=== PATIENT | female | born 1995 | race Asian ===

== ENCOUNTER 2016-04-23 04:27 | Emergency (ER) | payer OTHER ==
[~2016-04-23] VITALS: Ht 172.7 cm; Wt 58.1 kg
[2016-04-23 04:31] VITALS: TEMP 36.9; Ht 172.7 cm; Wt 58.1 kg
[2016-04-23] MEDS ORDERED: ONDANSETRON 4MG OD TAB PO ONE (04:45)
[2016-04-23] MEDS ORDERED: ONDANSETRON HOME PACK 4MG OD TAB PO ONE (05:00)
--- NOTE | 2016-04-23 05:26 | EMERGENCY ROOM VISIT NOTE ---
History First contact with patient: 04:34 Chief Complaint: ALCOHOL OVERDOSE Stated Complaint: FEEL LIKE VOMITING- ALOCHOL POISONING? Nursing Triage Summary: Patient c/o n/v. Admits to drinking ETOH tonight. States, "I drank cider tonight. It's more than a beer. It's not legal." Denies any pain. History of Present Illness The patient is a 20 year old female who presents to the Emergency Room with complaints of nausea and upset stomach after having 3 ciders tonight. Patient denies chest pain, dyspnea, fever, chills, vomiting, diarrhea, drug use, abdominal pain, lightheadedness or dizziness. Patient feels nauseous and is requesting medication for this. Review of Systems See HPI for pertinent positives & negatives. A total of 10 systems reviewed and were otherwise negative. Past Medical/Surgical History Medical Problems: (1) Influenza-like symptoms (2) Urinary tract infection Family History No pertinent family history Social History Smoking Status: Never Smoker Smokeless Tobacco Use: No Alcohol Use: occasionally Drug Use: none Marital Status: in relationship Housing Status: lives with friends Occupation Status: [employer] student Allergies Coded Allergies: No Known Allergies (Unverified , 12/07/13) Physical Exam Vital Signs Date Time Temp Pulse Resp B/P Pulse Ox O2 Delivery O2 Flow Rate FiO2 04/23/16 04:31 36.9 76 18 98/74 98 Room Air Physical Exam VITALS: Vitals are noted on the nurse's note and reviewed by myself. Vital signs stable. GENERAL: Pleasant female with a 3 to, in no acute distress, nondiaphoretic, well -developed well-nourished. SKIN: The skin was without rashes, erythema, edema, or bruising. There is no tenting of the skin. Capillary reflex less than 2 seconds. HEAD: Normocephalic atraumatic. EARS: External auditory canals clear, tympanic membranes pearly aparicio without erythema or effusion bilaterally. EYES: Pupils equal round and reactive to light and accommodation. Conjunctivae with injection, sclerae without icterus. Extraocular movements intact. NOSE: Patent, turbinates without inflammation or discharge. MOUTH: Mucous membranes moist. Pharynx without erythema or exudate. Uvula midline. Airway patent. Tongue does not deviate. NECK: Supple without nuchal rigidity. No lymphadenopathy. No thyromegaly. Cervical spine is nontender. No JVD. HEART: Regular rate and rhythm without murmurs gallops or rubs. LUNGS: Clear to auscultation bilaterally without wheezes, rales or rhonchi. No dullness to percussion. No retractions or accessory muscle use. ABDOMEN: Positive bowel sounds x 4. Normal tympanic percussion. Soft, nontender, without masses or organomegaly. Pearl sign negative. No guarding or rebound tenderness. MUSCULOSKELETAL: No muscle atrophy, erythema, or edema noted. NEURO: Patient was alert and oriented to person place and time. Normal sensation to light and sharp touch. No focal neurological deficits. Medical Decision & Procedures Medications Administered Medications (Trade) Dose Ordered Sig/Philip Route Start Time Stop Time Status Last Admin Dose Admin Ondansetron HCl (Zofran Odt) 4 mg ONE ONCE PO 04/23/16 04:45 04/23/16 04:46 DC 04/23/16 04:47 4 MG ED Course Prior records/ancillary studies reviewed. Triage Nursing notes reviewed. Additional history obtained from the family. The patient's history was concerning for nausea, after drinking alcohol Differential diagnosis: Etiologies such as alcoholic gastritis, nausea, food borne illness, infections, appendicitis, diverticulitis, inflammatory bowel disease, obstruction, GI bleed , biliary pathology, as well as others were entertained. Physical examination findings: As above. Abdominal examination revealed no tenderness. Vital signs reviewed and revealed stable. ER treatment provided: Zofran, by mouth fluids On reassessment the patient felt better. Patient was tolerating p.o. intake. Diagnostics interpretation by me: Deferred This appears to be consistent with nausea most likely from alcohol use. Patient does not drink this much alcohol. She was not clinically intoxicated. She was well-appearing. She felt much better after being medicated as above. She is strongly encouraged not to drink excessively in the future. She is advised to follow-up with health services in a few days or here in the ER sooner for abdominal pain, fevers, vomiting, worsening signs or symptoms or as needed. By the evaluation outlined above emergent etiologies such as appendicitis, diverticulitis, obstruction, cardiac sources, mesenteric ischemia , aortic pathology, inflammatory bowel disease, renal colic, PUD, biliary pathology, UTI, as well as others were deemed relatively unlikely. The pt informed about the findings as listed above. All questions were answered and pleased with the treatment. Return instructions were outlined and the patient was discharged in stable condition. Outpatient prescription management: zofran Referral: The patient was referred to their primary care physician for follow-up in 2 to 3 days for a recheck of the current condition. Medical Decision As above Impression Primary Impression: Alcohol use Additional Impression: Nausea Departure Information Dispostion Home / Self-Care Condition GOOD Referrals [facility] (PCP) Patient Instructions [facility] Additional Instructions DO NOT drive, drink alcohol, operate machinery, or perform dangerous activities today. You were given medications in the ER that can affect your ability to safely function or operate a vehicle. Zofran(odansetron) tablets 4mg: Take one and allow it to dissolve in your mouth every four to six hours as needed for nausea or vomiting. Acetaminophen(Tylenol) may be used for fever or pain. Use 1000mg every six hours as needed. Avoid using more than 3000mg in a 24 hour period. Rest and drink plenty of fluids as tolerated. Slow sips of water or sports drinks are recommended instead of large amounts all at once. Continue current medications. Once your stomach is settled start with a clear liquid diet (jello, soup broth, etc.) and then advance as tolerated. You should avoid full, heavy meals for about 24 hrs from the time your symptoms resolved. Return to the ER for persistent vomiting, fevers, abdominal pain, chest pains, difficulty breathing, black or bloody stools, worsening of your condition, or as needed. Follow up with your primary physician in 2-3 days for a recheck of your current condition. Problem Qualifiers
[2016-04-23 05:34] VITALS: BP 98/74; PULSE 76; O2SAT 98
== END 2016-04-23 05:36 | disposition home or self-care (01) ==
LOC: C.EDB 04:28 → C.EDA 05:36
DX: R11.0 Nausea (principal); Z72.89 Other problems related to lifestyle; Z87.440 Personal history of urinary (tract) infections